=== PATIENT | male | born 1950 | race Caucasian/White ===

== ENCOUNTER 2019-03-12 06:47 | Emergency (ER) | payer BC, MEDICARE ==
--- NOTE | 2019-03-12 07:30 | ED Physician Chart ---
ED Chief Complaint/HPI - Patient Information Date Seen:: 03/12/19 Time Seen:: 07:15 Chief Complaint:: head trauma History of Present Illness:: 4/2 days ago patient slipped and fell striking his left posterior parietal scalp on concrete. No loss of consciousness. Patient complains of nausea and vomiting in the morning. He has a sensation of fullness across his forehead. 3 days ago he developed right shoulder pain. He also has pain superior left lateral chest. Allergies:: Allergies Allergy/AdvReac Type Severity Reaction Status Date / Time Tetanus Vaccines and Toxoid Allergy Verified 03/12/19 07:04 Vitals:: Vital Signs - 8 hr 03/12/19 07:05 Temp 97.3 F HR 64 RR 18 BP 151/108 O2 Sat % 95 Historian:: Patient ED Review of Systems - Review of Systems General/Constitutional: No fever, No chills Skin: No skin lesions Head: Headache Eyes: No loss of vision ENT: No earache Neck: Stiffness Cardio Vascular: No chest pain, No palpitations Pulmonary: No SOB GI: Nausea, Vomiting G/U: No dysuria Musculoskeletal: Bone or joint pain Endocrine: No polyuria Psychiatric: No prior psych history, No depression, No anxiety Hematopoietic: No bruising Allergic/Immuno: No urticaria Neurological: No syncope ED Past Medical History - Past Medical History Past Medical History: Arthritis, Other (acid reflux; hepatitis C) Family History: Diabetes Melitus Social History: Smoker, Alcohol, Other (patient smokes an occasional cigar; he drinks alcohol occasionally) Surgical History: Appendectomy Psychiatricy History: None Medication: Reviewed Family Medical History - Family Member Mother Living Status: Hx Family Diabetes: Yes ED Physical Exam - Physical Examination General/Constitutional: Well-developed, well-nourished, Alert Other Gen/Cons comments:: Patient actively vomiting clear secretions Other Head comments:: Posterior parietal tenderness without swelling or deformity Eyes: Lids, conjuctiva normal Skin: Nl inspection, No rash ENMT: External ears, nose nl, TM canals nl, Nasal exam nl, Lips, teeth, gums nl , Oropharynx nl, Tonsils nl Other Neck comments:: Range of motion: 75 forward flexion; 70 extension; 20 right and 30 left rotation; 5 lateral flexion Respiratory: Nl effort/Exclusion, Clear to Auscultation, No Wheeze/Rhonchi/Rales Cardio Vascular: RRR, No murmur, gallop, rubs GI: Nondistended Other GI comments:: Epigastric tenderness : No CVA tenderness Extremities: Normal digits & nails Neuro/Psych: No focal deficits Other Misc comments:: Right shoulder: Tenderness over humeral head ED Assessment - Assessment General Assessment: Patient apparently has a postconcussion syndrome. He felt slightly improved after a liter normal saline and 4 mg of Zofran intravenously. He was noted to no longer be vomiting. X-ray right shoulders showed no fracture. Chest x-ray was also negative showing no rib fractures. Patient was told he will gradually improve and there is no specific medication for a concussion. I will prescribe Reglan 10 mg #20 to take 1 3 times a day. He vomited after getting a Zofran 4 mg oral disintegrating tablet so will not prescribe it. ED Septic Shock - . Is Septic Shock (SBP<90, OR Lactate>4 mmol\L) present?: No - <6hrs of presentation: Vital Signs: Vital Signs - 8 hr / 07:05 Temp 97.3 F HR 64 RR 18 BP 151/108 O2 Sat % 95 ED Reassessment (Disposition) - Reassessment Reassessment Condition:: Improved - Diagnosis Diagnosis:: Postconcussion syndrome; pain right shoulder probably from arthritis; left chest wall contusion - Aftercare/Follow up Instructions Aftercare/Follow-Up Instructions:: Refer to Discharge Instructions Medication Prescribed:: Reglan 10 mg #20 to take 1 3 times a day as necessary for nausea and vomiting - Patient Disposition Discharge/Transfer:: Home Condition at Disposition:: Stable, Improved
--- NOTE | 2019-03-12 08:20 | Diagnostic Imaging Report ---
CT scan of the brain without contrast History: Trauma Total DLP equals 683 CTDI equals 38.7 Axial sections were obtained from the base of the skull to the vertex. There is a normal ventricular system size. No focal parenchymal lesions are seen. No evidence of any mass effect or shift of midline structures. No extra-axial masses or abnormal fluid collections. Impression: Negative examination
[2019-03-12] MEDS ORDERED: Sodium Chloride 0.9% 1,000 ML IV ONE (08:35)
--- NOTE | 2019-03-12 13:03 | Diagnostic Imaging Report ---
Portable chest x-ray HISTORY: Shortness of breath Allowing for a poor inspiration, the heart size is normal. There is a retrocardiac density consistent with a relatively large hiatal hernia. No focal bony parenchymal processes. No hilar abnormalities. IMPRESSION: 1. Retrocardiac density consistent with a relatively large hiatal hernia 2. No acute pulmonary processes
--- NOTE | 2019-03-12 13:07 | Diagnostic Imaging Report ---
Right shoulder (2 views) HISTORY: Pain, trauma No acute abnormalities. No fractures. No dislocation. Hypertrophic degenerative changes noted about the acromioclavicular joint. IMPRESSION: 1. No acute abnormalities 2. Degenerative changes about the acromioclavicular joint
== END 2019-03-12 09:38 | disposition home or self-care (01) ==
LOC: ER 06:47
DX: S20.212A Contusion of left front wall of thorax, initial encounter (principal); F07.81 Postconcussional syndrome; S09.90XA Unspecified injury of head, initial encounter; M25.511 Pain in right shoulder; W01.198A Fall on same level from slipping, tripping and stumbling with subsequent striking against other object, initial encounter; Y93.89 Activity, other specified; Y92.89 Other specified places as the place of occurrence of the external cause; Y99.8 Other external cause status
CPT/HCPCS: 99284; 96374; 96375; 71045; 73030; 70450; Q0162; J1885; J2405; J7030; Z7610